=== PATIENT | male | born 1980 | race Caucasian/White ===

== ENCOUNTER 2024-04-23 06:05 | Emergency (ER) | payer MEDICAID, SELFPAY ==
[2024-04-23 06:18] VITALS: BP 133/65
--- NOTE | 2024-04-23 06:21 | ED.GENMED ---
History of Present Illness
General
Chief Complaint: Crisis Evaluation
Source: patient and police
Exam Limitations: altered mental status
Time Seen by Provider: 04/23/24 06:09
Nursing documentation reviewed up to this point in time: agreed with
History of Present Illness
History of Present Illness:
43-year-old male history of mental illness prior history of substance abuse noted to the police who brought him in several calls via 911 last night patient is manic, delusional, yelling out profanities, is oriented to person and place, tells me he
has been on a lot of psychiatric medications previously but none recently
Police state when they picked him up he was just getting out of the shower, not exposed to the heat reportedly
Past History
Past History
ED Past Medical History: Psychiatric (Anxiety)
Social History
Tobacco: Non-smoker
Alcohol: Former
Review of Systems
Review of Systems
All Other Systems: Not applicable
Constitutional: Denies fever or fatigue
EENT: Reports no symptoms
Respiratory: Reports no symptoms
Cardiac: Reports no symptoms
ABD/GI: Reports no symptoms
Psychiatric: Reports anxiety and hallucinations; Denies suicidal
Phy Exam
Physical Exam
Physical Exam:
Physical Exam
General: Manic 43-year-old
Neck: No overt signs of head or neck
Heart: Regular
Lungs: no acute respiratory distress. clear bilaterally
Neuro: alert and oriented. no focal neurological deficits
Skin: no rash
Psychiatric: Pressured speech, delusional manic
Extremities: no edema.
Course
Orders/Labs/Results
Orders:
Orders
04/23/24 06:15
Haloperidol Lactate [Haldol] 5 mg IM NOW STA
Lorazepam [Ativan] 2 mg IM NOW STA
04/23/24 06:16
Crisis Consult Routine
Reason for Consult: 302
Haloperidol Lactate [Haldol] 5 mg .ROUTE .STK-MED ONE
Lorazepam [Ativan] 2 mg .ROUTE .STK-MED ONE
04/23/24 06:20
0.9% Sodium Chloride 1000 ml [Nss] 1,000 ml IV BOLUS
04/23/24 06:23
Acetaminophen Urgent
Alcohol Urgent
CPK [Creatine Phosphokinase] Urgent
Complete Blood Count/With Diff Urgent
Comprehensive Metabolic Panel Urgent
Salicylate Urgent
04/23/24 06:25
Lorazepam [Ativan] 2 mg IV NOW STA
04/23/24 10:31
Urine Drug Abuse Screen Urgent
Date Specimen was Collected: 04/23/24
Time Specimen was Collected: 10:29
Abnormal Lab Results
04/23/24
06:23
WBC 14.1 H 10^3/uL
(4.8-10.8)
Abs Immat Gran (auto) 0.1 H 10^3/uL
(0-0.05)
Absolute Neuts (auto) 9.6 H 10^3/uL
(1.4-6.5)
Absolute Monos (auto) 1.1 H 10^3/uL
(0.1-0.6)
Creatine Kinase 663 H U/L
(55-170)
Salicylates < 1.0 L mg/dl
(2.0-20.0)
Acetaminophen < 10 L ug/ml
(10-30)
04/23/24 06:23
04/23/24 06:23
Vital Signs
Initial and Last Documented VS:
Initial Vital Signs
Temp Pulse Resp BP Pulse Ox
98.9 F 65 20 133/65 100
04/23/24 06:18 04/23/24 06:18 04/23/24 06:18 04/23/24 06:18 04/23/24 06:18
Last Documented Vital Signs
Temp Pulse Resp BP Pulse Ox
98.9 F 65 20 133/65 100
04/23/24 06:18 04/23/24 06:18 04/23/24 06:18 04/23/24 06:18 04/23/24 06:18
MDM/Problems Addressed
Differential Diagnosis Includes:
Primary psychosis acute kinza toxic metabolic viral mental less likely infectious
MDM/Problems Addressed:
Acute kinza ecchymosis delusion
Chronic conditions affecting care: Psychiatric illness
Acute Exacerbation and/or Progression of Chronic Illness: Psychiatric illness
*Pulse Oximetry
Patient hypoxic: no
*Critical Care Note
Total Time (30-74mins, 75-104mins- exclusive of procedures): Not Applicable
Update Note
Update Note:
Update white count noted CPK noted will hydrate, crisis and psychiatry evaluations are pending
1045 reviewed with crisis 302 upheld
ED Attending Note
-
Portions of this chart may have been created with voice recognition software.� Occasional wrong word or��sound alike� substitutions may have occurred due to the inherent limitations of voice recognition software.
Discharge Plan
Departure
Prescriptions:
No Action
No Current Medications
0
Referrals:
UNKNOWN - PT NOT,INTERVIEWE [Family Provider] -
Interventions
Interventions:
*Risk Screen - Suicide Last Done: 04/23/24 06:13
*General Assessment Last Done: 04/23/24 06:13
*Neglect/Abuse Screening Last Done: 04/23/24 06:13
*ED COVID-19 Vaccine History Last Done: 04/23/24 06:13
ED-Psychological Assessment Last Done: 04/23/24 06:28
Discharge Date and Time
Print Language: ESTONIAN
[2024-04-23] MEDS: HALDOL 5 MG IM (06:24)
[2024-04-23] MEDS: ATIVAN 2 MG IV (06:26)
[2024-04-23 06:36] LABS: % Basophils 0.2 % (0-2); % Eosinophils 1.1 % (0-6); % Immature Granulocytes 0.4 % (0-0.5); % Lymphocytes 22.4 % (20.5-51.1); % Monocytes 7.8 % (1.7-9.3); % Neutrophils 68.1 % (42.2-75.2); Absolute Eosinophils 0.2 10^3/uL (0-0.7); Absolute Immature Granulocytes 0.1 10^3/uL (0-0.05); Absolute Lymphocytes 3.2 10^3/uL (1.2-3.4); Absolute Monocytes 1.1 10^3/uL (0.1-0.6); Absolute Neutrophils 9.6 10^3/uL (1.4-6.5); Hematocrit 40.4 % (39.0-52.0); Hemoglobin 14.3 g/dL (13.0-18.0); Mean Corp Hgb Conc. 35.4 g/dL (33.0-37.0); Mean Corpuscular Hgb 29.7 pg (27.0-31.0); Mean Platelet Volume 9.6 fL (7.4-10.4); Nucleated Red Blood Cells % 0 % (-); Platelet Count 308 10^3/uL (130-400); Red Blood Cell Count 4.81 10^6/uL (4.70-6.10); Red Cell Dist. Width 13.6 % (11.5-14.5); White Blood Cell Count 14.1 10^3/uL (4.8-10.8)
[2024-04-23 06:50] LABS: ALT (SGPT) 37 U/L (0-50); AST (SGOT) 39 U/L (17-59); Acetaminophen < 10 ug/ml (10-30); Albumin 4.5 g/dl (3.5-5.0); Alkaline Phosphatase 70 U/L (38-126); Blood Urea Nitrogen 13 mg/dl (9-20); Calcium 9.6 mg/dl (8.4-10.2); Carbon Dioxide 25 mmol/L (22-30); Chloride 106 mmol/L (98-107); Creatine Phosphokinase 663 U/L (55-170); Glucose 99 mg/dl (70-99); Potassium 3.6 mmol/L (3.5-5.1); Salicylate < 1.0 mg/dl (2.0-20.0); Sodium 141 mmol/L (135-145); Total Bilirubin 0.5 mg/dl (0.2-1.3); Total Protein 7.4 g/dl (6.3-8.2); eGFR > 60.00
[2024-04-23 07:03] LABS: Alcohol None Detected
[2024-04-23] MEDS: NSS 1000 IV (07:49)
[2024-04-23 11:27] LABS: Amphetamines Negative (Negative); Barbiturates Negative (Negative); Benzodiazepines Positive (Negative); Buprenorphine Negative (Negative); Cocaine Negative (Negative); Marijuana Positive (Negative); Methadone Negative (Negative); Methamphetamines Negative (Negative); Opiates Negative (Negative); Phencyclidine Negative (Negative); Tricyclic Antidepressants Negative (Negative)
[2024-04-23 11:46] LABS: Fentanyl, Urine Positive (Negative)
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
[2024-04-23 13:12] VITALS: BP 128/70
--- NOTE | 2024-04-23 14:26 | ED.GENMED ---
History of Present Illness
General
Chief Complaint: Crisis Evaluation
Time Seen by Provider: 04/23/24 06:09
Past History
Past History
ED Past Medical History: Psychiatric (Anxiety)
Social History
Tobacco: Non-smoker
Alcohol: Former
Course
Orders/Labs/Results
Orders:
Orders
04/23/24 06:15
Haloperidol Lactate [Haldol] 5 mg IM NOW STA
Lorazepam [Ativan] 2 mg IM NOW STA
04/23/24 06:16
Crisis Consult Routine
Reason for Consult: 302
Haloperidol Lactate [Haldol] 5 mg .ROUTE .STK-MED ONE
Lorazepam [Ativan] 2 mg .ROUTE .STK-MED ONE
04/23/24 06:20
0.9% Sodium Chloride 1000 ml [Nss] 1,000 ml IV BOLUS
04/23/24 06:23
Acetaminophen Urgent
Alcohol Urgent
CPK [Creatine Phosphokinase] Urgent
Complete Blood Count/With Diff Urgent
Comprehensive Metabolic Panel Urgent
Salicylate Urgent
04/23/24 06:25
Lorazepam [Ativan] 2 mg IV NOW STA
04/23/24 10:31
Fentanyl, Urine Urgent
Urine Drug Abuse Screen Urgent
Date Specimen was Collected: 04/23/24
Time Specimen was Collected: 10:29
04/23/24 12:18
Asenapine Sublingual [Saphris] 5 mg SL [id number] PRN
04/23/24 14:26
Lorazepam [Ativan] 1 mg PO NOW STA
04/23/24 20:00
Asenapine Sublingual [Saphris] 5 mg SL BID
Abnormal Lab Results
04/23/24 04/23/24
06:23 10:31
WBC 14.1 H 10^3/uL
(4.8-10.8)
Abs Immat Gran (auto) 0.1 H 10^3/uL
(0-0.05)
Absolute Neuts (auto) 9.6 H 10^3/uL
(1.4-6.5)
Absolute Monos (auto) 1.1 H 10^3/uL
(0.1-0.6)
Creatine Kinase 663 H U/L
(55-170)
Salicylates < 1.0 L mg/dl
(2.0-20.0)
Urine Fentanyl Screen Positive H
(Negative)
Acetaminophen < 10 L ug/ml
(10-30)
U Benzodiazepines Scrn Positive H
(Negative)
U Marijuana (THC) Screen Positive H
(Negative)
04/23/24 06:23
04/23/24 06:23
Vital Signs
Initial and Last Documented VS:
Initial Vital Signs
Temp Pulse Resp BP Pulse Ox
98.9 F 65 20 133/65 100
04/23/24 06:18 04/23/24 06:18 04/23/24 06:18 04/23/24 06:18 04/23/24 06:18
Last Documented Vital Signs
Temp Pulse Resp BP Pulse Ox
98.9 F 64 18 128/70 99
04/23/24 06:18 04/23/24 13:12 04/23/24 13:12 04/23/24 13:12 04/23/24 13:12
ED Attending Note
-
Portions of this chart may have been created with voice recognition software.� Occasional wrong word or��sound alike� substitutions may have occurred due to the inherent limitations of voice recognition software.
Discharge Plan
Departure
Patient Disposition: Psych Facility
Date of Disposition: 04/23/24
Time of Disposition: 10:48
Condition: Good
Discharge Problem:
Psychosis
Prescriptions:
No Action
No Current Medications
0
Referrals:
UNKNOWN - PT NOT,INTERVIEWE [Family Provider] -
Interventions
Interventions:
*Risk Screen - Suicide Last Done: 04/23/24 06:13
*General Assessment Last Done: 04/23/24 06:13
*Neglect/Abuse Screening Last Done: 04/23/24 06:13
*ED COVID-19 Vaccine History Last Done: 04/23/24 06:13
*Nursing Disposition Last Done: 04/23/24 19:07
ED-Psychological Assessment Last Done: 04/23/24 06:28
Discharge Date and Time
Discharge Date/Time: 04/23/24 19:08
Print Language: MAURITIAN
[2024-04-23] MEDS: ATIVAN 1 MG PO (14:37)
[2024-04-23] MEDS: SAPHRIS 5 MG SL (17:18)
== END 2024-04-23 19:08 ==
LOC: EMR 06:05
PROVIDERS: EMERGENCY PHYSICIAN Emergency Medicine; OTHER PHYSICIAN Psychiatry & Neurology Psychiatry
DX: F29 Unspecified psychosis not due to a substance or known physiological condition (principal); F22 Delusional disorders; R45.1 Restlessness and agitation; R44.3 Hallucinations, unspecified; F41.9 Anxiety disorder, unspecified; F19.10 Other psychoactive substance abuse, uncomplicated
CPT/HCPCS: 99285; 96374; 96361; 96372; 80053; 80143; 80179; 80306; 80307; 82077; 82550; 85025